=== PATIENT | male | born 1990 | race Caucasian/White ===

== ENCOUNTER 2021-10-30 22:26 | Emergency (ER) | payer BC ==
[2021-10-31 00:44] VITALS: BP 149/88; PULSE 94
[2021-10-31] MEDS ORDERED: hydrOXYzine HCl 25 MG Tab PO ONE (01:18)
== END 2021-10-31 01:47 | disposition home or self-care (01) ==
LOC: JD.ED 22:26
DX: J06.9 Acute upper respiratory infection, unspecified (principal); F41.9 Anxiety disorder, unspecified; I10 Essential (primary) hypertension; J45.909 Unspecified asthma, uncomplicated; Z88.0 Allergy status to penicillin; Z79.899 Other long term (current) drug therapy
CPT/HCPCS: 71045; 93005; 99283; A9270

== ENCOUNTER 2022-01-23 06:17 | Emergency (ER) | payer BC ==
[2022-01-23 12:04] VITALS: BP 160/118; PULSE 99
== END 2022-01-23 11:55 | disposition home or self-care (01) ==
LOC: JD.ED 06:17
DX: F41.9 Anxiety disorder, unspecified (principal); R55 Syncope and collapse; F32.A Depression, unspecified; Z88.0 Allergy status to penicillin; Z20.822 Contact with and (suspected) exposure to COVID-19
CPT/HCPCS: 36415; 71045; 71045-26; 80053; 84443; 84484; 85025; 85379; 99284; U0002

== ENCOUNTER 2023-03-08 18:10 | Emergency (ER) | payer SELFPAY ==
[2023-03-08] MEDS ORDERED: Lidocaine 1% 10 ML MDV INJECT ONE (18:39)
[2023-03-08] MEDS ORDERED: Diphtheria,Pertussis(Acell),Tetanus Vaccine 0.5 ML Syringe IM ONE (19:13)
[2023-03-08 19:46] VITALS: BP 133/87; PULSE 66
== END 2023-03-08 19:43 | disposition home or self-care (01) ==
LOC: JD.ED 18:10
DX: S61.011A Laceration without foreign body of right thumb without damage to nail, initial encounter (principal); I10 Essential (primary) hypertension; J45.909 Unspecified asthma, uncomplicated; F17.210 Nicotine dependence, cigarettes, uncomplicated; Z23 Encounter for immunization; Z88.0 Allergy status to penicillin; Z79.899 Other long term (current) drug therapy; W27.0XXA Contact with workbench tool, initial encounter
CPT/HCPCS: 12001; 90471; 90715; 99282-25; J3490

== ENCOUNTER 2023-06-10 19:56 | Emergency (ER) | payer SELFPAY ==
[2023-06-10 20:06] VITALS: PULSE 87
[2023-06-10] MEDS ORDERED: Dextrose 5%-Lactated Ringers 1,000 ML IV SCH (20:15)
[2023-06-10] MEDS ORDERED: LORazepam 2 MG/ML SDV IVPUSH ONE (20:15)
[2023-06-10 20:37] LABS: BASOPHILS ABSOLUTE AUTO 0.1 K/mm3 (0.0-0.2); BASOPHILS PERCENT AUTO 0.7 % (0.0-1.0); EOSINOPHILS ABSOLUTE AUTO 0.2 K/mm3 (0.0-0.4); EOSINOPHILS PERCENT AUTO 1.3 % (0.0-6.0); HEMATOCRIT 46.5 % (42.0-52.0); HEMOGLOBIN 16.5 gm/dl (14.0-18.0); IMMATURE GRAN ABSOLUTE AUTO 0.02 K/mm3 (0.00-0.05); IMMATURE GRAN PERCENT AUTO 0.2 % (0.0-0.4); LYMPHOCYTES ABSOLUTE AUTO 5.5 K/mm3 (1.0-4.8); LYMPHOCYTES PERCENT AUTO 48.4 % (24.0-44.0); MEAN CORPUSCULAR HEMOGLOBIN 30.1 pg (28.0-32.0); MEAN CORPUSCULAR HGB CONC 35.5 g/dl (32.0-36.0); MEAN CORPUSCULAR VOLUME 84.9 fl (83.0-99.0); MEAN PLATELET VOLUME 8.7 fl (9.4-12.4); MONOCYTES ABSOLUTE AUTO 0.6 K/mm3 (0.0-0.8); MONOCYTES PERCENT AUTO 5.7 % (0.0-8.0); NEUTROPHILS ABSOLUTE AUTO 4.9 K/mm3 (1.8-7.7); NEUTROPHILS PERCENT AUTO 43.7 % (41.0-71.0); PLATELET COUNT,PLT 297 K/mm3 (150-400); RED BLOOD CELL COUNT 5.48 M/mm3 (4.52-5.90); WHITE BLOOD CELL COUNT,WBC 11.29 K/mm3 (3.9-11.3)
[2023-06-10 21:03] LABS: ALANINE AMINOTRANSFERASE,ALT 37 U/L (16-63); ALBUMIN 3.9 g/dl (3.4-5.0); ALKALINE PHOSPHATASE 50 U/L (46-116); ANION GAP 15.9 (5-15); ASPARTATE AMNIOTRANSFERASE,AST 26 U/L (15-37); BILIRUBIN TOTAL 0.5 mg/dL (0.2-1.0); BLOOD UREA NITROGEN,BUN 17 mg/dL (7-18); BUN/CREATININE RATIO 15.5 (14-18); C-REACTIVE PROTEIN <0.2 mg/dL (<1.0); CALCIUM 9.9 mg/dL (8.5-10.1); CARBON DIOXIDE,CO2 26 mEq/L (21-32); CHLORIDE,CL 100 mEq/L (98-107); CREATININE 1.1 mg/dL (0.7-1.3); EST CRCL DRUG DOSING (CG) 105.82 mL/min; ESTIMATED GFR 91 mL/min (>60); GLUCOSE RANDOM 122 mg/dL (70-99); MAGNESIUM 1.6 mg/dL (1.8-2.4); POTASSIUM,K 3.9 mEq/L (3.5-5.1); SODIUM,NA 138 mEq/L (136-145); TROPONIN I HIGH SENSITIVITY 6 pg/mL (<=76); TSH 3.948 uIU/mL (0.358-3.74)
[2023-06-10 22:34] VITALS: BP 133/79
== END 2023-06-10 22:21 | disposition home or self-care (01) ==
LOC: JD.ED 19:56
DX: F41.1 Generalized anxiety disorder (principal); G47.33 Obstructive sleep apnea (adult) (pediatric); E03.8 Other specified hypothyroidism; I10 Essential (primary) hypertension; J45.909 Unspecified asthma, uncomplicated; Z79.899 Other long term (current) drug therapy
CPT/HCPCS: 36415; 71045; 80053; 83735; 83880; 84443; 84484; 85025; 85379; 86140; 93005; 96361; 96374; 99285; J2060; J7121; 93010; 99284

== ENCOUNTER 2024-01-29 17:32 | Emergency (ER) | payer BC ==
[2024-01-29] MEDS ORDERED: Sodium Chloride 0.9% 1,000 ML IV ONE (17:33)
[2024-01-29] MEDS ORDERED: propofoL 100 ML ONE (17:37)
[2024-01-29] MEDS ORDERED: Midazolam 1 MG/ML 5 ML SDV ONE (17:40)
[2024-01-29] MEDS ORDERED: Succinylcholine 200 MG/10 ML MDV ONE (17:40)
[2024-01-29] MEDS ORDERED: Etomidate 2 MG/ML 20 ML SDV IVPUSH ONE (17:40)
[2024-01-29] MEDS ORDERED: Sodium Chloride 0.9% 10 ML Syringe FLUSH PRN (17:41)
[2024-01-29 17:48] LABS: BASOPHILS ABSOLUTE AUTO 0.1 K/mm3 (0.0-0.2); BASOPHILS PERCENT AUTO 0.7 % (0.0-1.0); EOSINOPHILS ABSOLUTE AUTO 0.1 K/mm3 (0.0-0.4); EOSINOPHILS PERCENT AUTO 0.9 % (0.0-6.0); HEMATOCRIT 41.2 % (42.0-52.0); HEMOGLOBIN 13.9 gm/dl (14.0-18.0); IMMATURE GRAN ABSOLUTE AUTO 0.02 K/mm3 (0.00-0.05); IMMATURE GRAN PERCENT AUTO 0.1 % (0.0-0.4); LYMPHOCYTES ABSOLUTE AUTO 9.5 K/mm3 (1.0-4.8); LYMPHOCYTES PERCENT AUTO 69.5 % (24.0-44.0); MEAN CORPUSCULAR HEMOGLOBIN 29.3 pg (28.0-32.0); MEAN CORPUSCULAR HGB CONC 33.7 g/dl (32.0-36.0); MEAN CORPUSCULAR VOLUME 86.9 fl (83.0-99.0); MONOCYTES ABSOLUTE AUTO 0.4 K/mm3 (0.0-0.8); MONOCYTES PERCENT AUTO 3.2 % (0.0-8.0); NEUTROPHILS ABSOLUTE AUTO 3.5 K/mm3 (1.8-7.7); NEUTROPHILS PERCENT AUTO 25.6 % (41.0-71.0); PLATELET COUNT,PLT 371 K/mm3 (150-400); RED BLOOD CELL COUNT 4.74 M/mm3 (4.52-5.90); WHITE BLOOD CELL COUNT,WBC 13.71 K/mm3 (3.9-11.3)
[2024-01-29 18:12] LABS: A/G RATIO 1.2 (1-2); ALANINE AMINOTRANSFERASE,ALT 30 U/L (16-63); ALBUMIN 3.7 g/dl (3.4-5.0); ALKALINE PHOSPHATASE 38 U/L (46-116); ANION GAP 17.1 (5-15); ASPARTATE AMNIOTRANSFERASE,AST 17 U/L (15-37); BILIRUBIN TOTAL 0.3 mg/dL (0.2-1.0); BLOOD UREA NITROGEN,BUN 4 mg/dL (7-18); CALCIUM 8.4 mg/dL (8.5-10.1); CARBON DIOXIDE,CO2 23 mEq/L (21-32); CHLORIDE,CL 108 mEq/L (98-107); ESTIMATED GFR 103 mL/min (>60); ETHANOL BLOOD MEDICAL 0.23 gm% (0.00); GLUCOSE RANDOM 162 mg/dL (70-99); LIPASE 59 U/L (16-77); POTASSIUM,K 4.1 mEq/L (3.5-5.1); PROTEIN TOTAL,TP 6.8 g/dl (6.4-8.2); SODIUM,NA 144 mEq/L (136-145)
[2024-01-29] MEDS: Diphtheria,Pertussis(Acell),Tetanus Vaccine 0.5 ML Syringe IM ONE (18:44)
[2024-01-29] MEDS: ceFAZolin 2 GM in Sodium Chloride 0.9% 50 ML IV ONE (18:45)
[2024-01-29] MEDS: propofoL 100 ML IV SCH (18:50)
[2024-01-29] MEDS: propofoL 100 ML ONE (19:24)
[2024-01-29] MEDS ORDERED: Rocuronium 50 MG/5 ML Vial IVPUSH ONE (20:28)
[2024-01-29] MEDS ORDERED: Midazolam 1 MG/ML 5 ML SDV IVPUSH ONE (20:29)
[2024-01-29 20:32] VITALS: BP 114/75; PULSE 103
== END 2024-01-29 21:10 ==
LOC: EDBD 17:32 → JD.ED 17:32 → MERGE 17:32 → JD.ED 21:10
DX: S02.92XB Unspecified fracture of facial bones, initial encounter for open fracture (principal); S06.6X0A Traumatic subarachnoid hemorrhage without loss of consciousness, initial encounter; X58.XXXA Exposure to other specified factors, initial encounter
CPT/HCPCS: 31500; 36415; 70450; 71045; 72125; 80053; 80307; 83690; 85025; 90471; 90715; 96361; 96365; 99285; J0330; J0690; J2250; J2704; J3490; J7030; 99291; 99292